=== PATIENT | female | born 1960 | race Caucasian/White ===

== ENCOUNTER 2017-03-28 08:06 | Outpatient (CLI) | payer OTHER ==
[2017-03-28] MEDS ORDERED: ADENOSINE 60 MG/20 ML VIAL ONE (17:14)
--- NOTE | 2017-03-29 17:00 | NM ---
MYOCARDIAL PERFUSION SCAN: HISTORY: Chest pain. TECHNIQUE: The patient was given 27 mCi of technetium sestamibi for rest imaging and 33 mCi for stress imaging. Two day protocol was followed. Patient was stressed according to Adenosine protocol. FINDINGS: There is a fixed defect in the anterior apical region on both stress and rest images. Some of this ma y be related to breast attenuation. No evidence of reversible ischemia identified. On wall motion evaluation, there is mild dyskinesis. Ejection fraction recorded at 50%. IMPRESSION: 1. Fixed defect in the anterior apical region. No evidence of reversible ischemia. 2. Mild wall motion dyskinesis with ejection fraction recorded at 50%. POS: [facility]
== END 2017-03-28 08:07 | disposition home or self-care (01) ==
LOC: NM 08:06
PROVIDERS: ATTEND Internal Medicine
DX: R07.9 Chest pain, unspecified (principal); R94.39 Abnormal result of other cardiovascular function study
CPT/HCPCS: 78452; 93017; A9500; J0153

== ENCOUNTER 2017-04-11 13:48 | Outpatient (CLI) | payer OTHER | END 2017-04-11 13:49 | disposition home or self-care (01) | LOC: ULT 13:48 | PROVIDERS: ATTEND Internal Medicine | DX: I45.10 Unspecified right bundle-branch block (principal) | CPT/HCPCS: 93306 ==

== ENCOUNTER 2017-10-09 06:28 | Outpatient (CLI) | payer OTHER ==
--- NOTE | 2017-10-09 07:55 | ULT ---
ABDOMINAL ULTRASOUND: INDICATION: Abdominal pain. FINDINGS: Images of the gallbladder reveal echogenic foci. These do not exhibit posterior shadowing. Consider ations include dense sludge balls or nonshadowing stones. Gallbladder wall thickness is normal. The common duct is normal caliber measured at 5 mm. The aorta and IVC appear unremarkable. The liver appears unremarkable. The spleen is surgically absent. Pancreas is mostly obscured. Both kidneys are imaged and each measures approximately 10 cm length. No evidence of hydronephrosis. There is a hypoechoic lesion in the inferior pole left kidney measures up to 1.5 cm. IMPRESSION: 1. Echogenic foci within the gallbladder consistent with sludge balls or nonshadowing stones. 2. An echogenic lesion in the inferior pole of the left kidney measuring 1.5 cm. This may represent an angiomyolipoma but cannot be adequately characterized by ultrasound. Recommend CT abdomen with a nd without contrast to further evaluate this renal lesion. 3. The spleen is surgically absent. POS: [facility]
== END 2017-10-09 06:29 | disposition home or self-care (01) ==
LOC: ULT 06:28
PROVIDERS: ATTEND Internal Medicine
DX: R10.9 Unspecified abdominal pain (principal); K82.9 Disease of gallbladder, unspecified; N28.89 Other specified disorders of kidney and ureter; Z90.81 Acquired absence of spleen
CPT/HCPCS: 76700

== ENCOUNTER 2017-10-15 12:04 | Outpatient (CLI) | payer OTHER ==
[~2017-10-15 12:04] MED LIST: Iopamidol 370 76% 100 ML VIAL ONE; Iopamidol 370 76% 50 ML VIAL FS ONE
--- NOTE | 2017-10-15 14:26 | CT ---
CT ABDOMEN WITH AND WITHOUT CONTRAST: Technique: Multiple axial tomograms were obtained through the abdomen pre and post IV contrast. Post contrast images were obtained in a portal venous and delayed venous phase following urographic protoc ol. Indications: Follow up left kidney lesion seen on recent ultrasound. Abdominal ultrasound of 10-09-17 described a hyperechoic lesion in the inferior left kidney. FINDINGS: Lung bases clear. There is a low density lesion seen in the upper right lobe of the liver on the noncontrast imaging me asuring approximately 3.0 cm. On the post contrast images, this lesion shows peripheral nodular enhan cement. The enhancing characteristics would suggest hemangioma. Correlation is made to the prior ultrasound and this area of the liver was not adequately visualized on the ultrasound due to shadowing from overlying bowel gas and ribs. This lesion was not seen on the ultrasound. There is a low density lesion in the upper right lobe of the liver measuring 3 cm on the noncontrast study. A faint low density lesion was seen in the medial left lobe and in the mid right lobe. On post contrast images, these lesions are better delineated. The upper right lobe lesion measures 3 cm, the medial left lobe lesion measures 2.1 cm, and the mid right lobe lesion measures 1.6 cm. All of these lesions show peripheral nodular enhancement on the post contrast images which would suggest hemangio ma. No of these lesions were seen on the recent abdominal ultrasound exam. The liver is otherwise unremarkable. The spleen is surgically absent. There is evidence of several sm all splenules in the left upper quadrant. The pancreas is unremarkable. Adrenal glands appear normal. Evaluation of the kidneys revealed two low density lesions in the inferior pole of the left kidney. T hese are faintly seen on the noncontrast study. They are better delineated on the post contrast exam. The more lateral lesion measures 1.0 cm and the more posterior lesion measures 1.2 cm. Neither of th rush lesions show fat density and, therefore, neither of these represents an angiomyolipoma as suspect ed on ultrasound. The lesion seen on ultrasound was hyperechoic which does not correspond with a cyst ic lesion. The more lateral lesion does show enhancement in the post contrast images also exhibits ir regular borders on the post contrast delayed images. This more lateral complex lesion probably corres ponds to the echogenic lesion seen on ultrasound. The more posterior lesion may represent a cyst, how ever, this was not identified on the recent ultrasound study. Right kidney is unremarkable. IMPRESSION: 1. There are two lesions in the lower pole left kidney identified by CT. The more lateral lesion appe ars more complex with evidence of irregular margins and internal enhancement. The more posterior lesi on is well circumscribed and may represent a cyst although this was not identified on recent ultrasou nd exam. Recommend urology consultation and recommend follow up of the complex lesion in the lateral left kidney. Suggest repeat CT with and without contrast in 4-6 months to assess stability of this le carlton. 2. There are three liver lesions seen on CT, none of which were identified on recent ultrasound. All of these lesions show enhancing characteristics suggesting hemangiomas. These lesions can also be fol lowed up on CT with the renal lesion. POS: [facility]
== END 2017-10-15 12:05 | disposition home or self-care (01) ==
LOC: CT 12:04
PROVIDERS: ATTEND Internal Medicine
DX: N28.89 Other specified disorders of kidney and ureter (principal)
CPT/HCPCS: 74170

== ENCOUNTER 2017-10-21 15:23 | Outpatient (CLI) | payer OTHER | END 2017-10-21 15:24 | disposition home or self-care (01) | LOC: BICMAMMO 15:23 | PROVIDERS: ATTEND Internal Medicine | DX: Z12.31 Encounter for screening mammogram for malignant neoplasm of breast (principal); Z80.3 Family history of malignant neoplasm of breast | CPT/HCPCS: 77063; 77067 ==

== ENCOUNTER 2018-01-29 12:12 | Outpatient (CLI) | payer OTHER ==
--- NOTE | 2018-01-29 14:15 | CT ---
CT ABDOMEN WITH AND WITHOUT CONTRAST: Date: 01/29/18 INDICATION: History of left renal mass. COMPARISON: Prior exam dated 10/15/17. FINDINGS: Small hypodensities involving the mid to lower pole of left kidney stable. One is seen on image 42 of series 3 in the left mid kidney measuring 1.0 cm. Lesion does mildly enhance and has on the precontr ast units areas of suspected fat on image 38 of series 2 suspicious for a tiny renal angiomyolipoma. The additional hypodensity involving the lower pole of the left kidney measures approximately 12 mm a nd demonstrates some mild internal enhancement suspicious for the presence of some mild internal sept ations. Small splenules are suspected within the left upper quadrant of the abdomen. The lesions with in the liver are consistent with hemangioma and are stable. The pancreas and adrenal glands are normal appearing. No free fluid or enlarged lymph nodes are evide nt. No definite acute osseous abnormality is evident. IMPRESSION: 1. Stable small hypodensities involving the mid to lower pole of the left kidney. The lesion within the left mid kidney has suspicion of a very small eccentric region of macroscopic fat and is suspicio us for a tiny renal angiomyolipoma. The hypodensity involving the inferior pole of the left kidney is suspicious for mildly complex cyst with possibly some enhancing internal septations. A follow-up exa mination in 1 year is recommended to document stability. 2. Hypodensities involving the liver demonstrate enhancement characteristics most consistent with he mangiomas. There are two lesions within the right hepatic lobe and one lesion within the medial left hepatic lobe. 3. Multiple small splenules within the left upper quadrant of the abdomen. POS: [facility]
[2018-01-29] MEDS ORDERED: Iopamidol 370 76% 100 ML VIAL ONE (16:08)
== END 2018-01-29 12:13 | disposition home or self-care (01) ==
LOC: CT 12:12
PROVIDERS: ATTEND Urology
DX: N28.89 Other specified disorders of kidney and ureter (principal); K76.9 Liver disease, unspecified
CPT/HCPCS: 74170

== ENCOUNTER 2018-10-29 15:51 | Outpatient (CLI) | payer OTHER ==
--- NOTE | 2018-10-29 16:14 | MMO ---
Bilateral MAMMO Bilat Screen [facility]. CLINICAL HISTORY: Patient is 58 years old and is seen for screening. The patient has no personal history of cancer. The patient has a history of right Excisional Biopsy in January, - BENIGN. VIEWS: The views performed were: bilateral craniocaudal with tomosynthesis and bilateral mediolateral oblique with tomosynthesis. FILMS COMPARED: The present examination has been compared to prior imaging studies performed at [facility] on 05/20/2007, 05/24/2008, 05/25/2009 and 10/21/2017. MAMMOGRAM FINDINGS: There are scattered fibroglandular densities. Finding 1: There are stable benign appearing calcifications seen in the left breast. Finding 2: There is a biopsy clip seen in the right breast. There are no suspicious masses, suspicious calcifications, or new areas of architectural distortion. IMPRESSION: THERE IS NO MAMMOGRAPHIC EVIDENCE OF MALIGNANCY. A ROUTINE FOLLOW-UP MAMMOGRAM IN 1 YEAR IS RECOMMENDED. THE RESULTS OF THIS EXAM WERE SENT TO THE PATIENT. ACR BI-RADS Category 2 - Benign finding MAMMOGRAPHY NOTE: 1. A negative mammogram report should not delay a biopsy if a dominant of clinically suspicious mass is present. 2. Approximately 10% to 15% of breast cancers are not detected by mammography. 3. Adenosis and dense breasts may obscure an underlying neoplasm. Reported by: NEELA ALBERTS MD Electonically Signed: [id number]
== END 2018-10-29 15:52 | disposition home or self-care (01) ==
LOC: BICMAMMO 15:51
PROVIDERS: ATTEND Internal Medicine
DX: Z12.31 Encounter for screening mammogram for malignant neoplasm of breast (principal); Z91.89 Other specified personal risk factors, not elsewhere classified
CPT/HCPCS: 77063; 77067

== ENCOUNTER 2018-11-12 13:46 | Outpatient (CLI) | payer OTHER ==
[~2018-11-12 13:46] MED LIST changes: -Iopamidol 370 76% 50 ML VIAL FS ONE
--- NOTE | 2018-11-12 15:33 | CT ---
CT ABDOMEN WITH AND WITHOUT IV CONTRAST: 11/12/18 HISTORY: Follow-up left renal neoplasm. COMPARISON: Studies on 01/29/18 and 10/15/17. FINDINGS: There is a small 5 mm incompletely imaged pulmonary nodule right lung base which is adjacent to the r egion or may be related to intrapleural lymph node. Lung bases otherwise clear except for minimal ate lectasis right lung base. There are two stable lesions within the liver which demonstrate characteristics most compatible with hemangiomas. These lesions are unchanged in size or appearance compared to prior studies. Subcentimeter too small to characterize hypodense lesions are again seen in each kidney. There is a h ypodense lesion with suggestion of attenuation coefficient compatible with fat on precontrast imaging suggesting a small angiomyolipoma in the inferior pole of the left kidney suggesting a angiomyolipom a. There is a stable low density lesion within the posterior aspect mid portion left kidney which faiza sures 1.3 cm and is overall stable in size compared to the prior exams. Again, there is question of a small enhancing thin septation within this lesion and this probably represents a Bosniak type II costa al cystic lesion. There are hypodense areas within the region of the renal sinus fat most compatible with small parapelvic left renal cysts as well. Multiple lobular areas seen in the left upper quadrant likely related to multiple splenules. The pancreas and bilateral adrenal glands demonstrate a normal CT appearance. There is a small enhancing nodule seen within the central mesentery measuring 1.2 cm with a smaller n odule seen in the anterior aspect upper abdomen measuring less than 1 cm. These nodules were present on prior studies, although the nodule within the central mesentery measures slightly larger in size m easuring 1.2 cm on today's exam where it previously measured 1 cm. These findings could represent sma ll splenules given the appearance of the spleen in the left upper quadrant or possibly related to mil dly prominent lymph nodes. No free fluid or fluid collection is seen in the abdomen. Degenerative changes are again seen in the spine. IMPRESSION: 1. Stable subcentimeter too small to characterize hypodense lesions in each kidney with findings suggestive of Bosniak type II renal cystic lesion posterior aspect mid portion left kidney. 2. Stable small angiomyolipoma left kidney. 3. Small nodules within the anterior mesenteric fat which could represent small lymph nodes or p ossibly splenules. The nodule in the central mesentery is slightly larger in size. 4. Lesions within the liver again demonstrating characteristics most compatible with hemangiomas . 5. Incomplete imaging of a 5 mm pleural based pulmonary nodule right lung base. POS: [facility]
== END 2018-11-12 13:47 | disposition home or self-care (01) ==
LOC: CT 13:46
PROVIDERS: ATTEND Urology
DX: D49.512 Neoplasm of unspecified behavior of left kidney (principal); D17.71 Benign lipomatous neoplasm of kidney; K76.89 Other specified diseases of liver; R91.1 Solitary pulmonary nodule; K66.8 Other specified disorders of peritoneum; R93.421 Abnormal radiologic findings on diagnostic imaging of right kidney; R93.422 Abnormal radiologic findings on diagnostic imaging of left kidney
CPT/HCPCS: 74170; Q9967

== ENCOUNTER 2019-03-30 15:03 | Outpatient (CLI) | payer OTHER ==
--- NOTE | 2019-03-30 17:41 | CT ---
CT CHEST WITH IV CONTRAST CT ABDOMEN WITH AND WITHOUT IV CONTRAST: Date: 03/30/19 HISTORY: Lung nodule, kidney mass follow-up. COMPARISON: CT abdomen of 11/12/18. FINDINGS: No evidence of mediastinal, hilar, or axillary mass or lymphadenopathy seen. No pleural or pericardia l effusions identified. There is a 5 mm nodule in the peripheral aspect of the right lower lobe, whic h is stable since the last study. No other lung nodules are seen. Liver hemangiomas are stable. The spleen, pancreas, and adrenal glands are normal. No calculi seen in the kidneys or visualized portions of the ureters. No hydroureteronephrosis seen o n either side. There is a 9 mm stable lesion in the right renal cortex which demonstrates postcontrast enhancement. There is a 13 mm cyst with internal septation in the posterior cortex of the inferior left kidney, wh ich is stable. The 1.0 cm fat-containing low density lesion in the inferolateral cortex of the left l ower kidney is stable, consistent with angiomyolipoma. No free air, free fluid, or lymphadenopathy seen in the abdomen. No calcified gallstones are seen. A normal appearing appendix is seen. There are degenerative changes in the thoracolumbar spine. The small enhancing nodule in the central mesentery measuring 1.2 cm and a smaller nodule in the ante rior aspect of the upper abdomen measuring less than 1.0 cm are stable. IMPRESSION: Stable findings in the chest and abdomen since 11/12/18. POS: [facility]
== END 2019-03-30 15:04 | disposition home or self-care (01) ==
LOC: RAD 15:03
PROVIDERS: ATTEND Urology
DX: R91.1 Solitary pulmonary nodule (principal); D49.512 Neoplasm of unspecified behavior of left kidney
CPT/HCPCS: 71260; 74170; 82565; Q9967

== ENCOUNTER 2019-11-03 15:20 | Outpatient (CLI) | payer OTHER ==
--- NOTE | 2019-11-03 15:55 | MMO ---
Bilateral MAMMO Bilat Screen [facility]. CLINICAL HISTORY: Patient is 59 years old and is seen for screening. The patient has the following family history of breast cancer: cousin female, at age 40. The patient has no personal history of cancer. The patient has a history of right Excisional Biopsy in January, - BENIGN. VIEWS: The views performed were: bilateral craniocaudal with tomosynthesis and bilateral mediolateral oblique with tomosynthesis. FILMS COMPARED: The present examination has been compared to prior imaging studies performed at [facility] on 05/24/2008, 05/25/2009, 10/21/2017 and 10/29/2018. This study has been interpreted with the assistance of computer-aided detection. MAMMOGRAM FINDINGS: There are scattered fibroglandular densities. There are biopsy clips seen in both breasts. There are no suspicious masses, suspicious calcifications, or new areas of architectural distortion. IMPRESSION: THERE IS NO MAMMOGRAPHIC EVIDENCE OF MALIGNANCY. A ROUTINE FOLLOW-UP MAMMOGRAM IN 1 YEAR IS RECOMMENDED. THE RESULTS OF THIS EXAM WERE SENT TO THE PATIENT. ACR BI-RADS Category 2 - Benign finding MAMMOGRAPHY NOTE: 1. A negative mammogram report should not delay a biopsy if a dominant of clinically suspicious mass is present. 2. Approximately 10% to 15% of breast cancers are not detected by mammography. 3. Adenosis and dense breasts may obscure an underlying neoplasm. Reported by: DUDLEY FREGOSO MD Electonically Signed: [id number]
== END 2019-11-03 15:21 | disposition home or self-care (01) ==
LOC: BICMAMMO 15:20
PROVIDERS: ATTEND Internal Medicine
DX: Z12.31 Encounter for screening mammogram for malignant neoplasm of breast (principal); Z91.89 Other specified personal risk factors, not elsewhere classified; Z80.3 Family history of malignant neoplasm of breast
CPT/HCPCS: 77063; 77067

== ENCOUNTER 2020-03-17 13:10 | Outpatient (CLI) | payer OTHER ==
[2020-03-17] MEDS ORDERED: Iopamidol 370 76% 100 ML VIAL ONE (13:44)
--- NOTE | 2020-03-17 14:12 | CT ---
EXAM: CT Abdomen W WO Con PROVIDED CLINICAL HISTORY: Follow-up renal mass. COMPARISON: 03/30/2019 FINDINGS: Visualized lung bases are clear. Stable hemangiomas are again seen in the liver. A few tiny subcentimeter too small to characterize hy podense lesions are also seen in the anterior aspect of the left hepatic lobe. Multiple splenules are again seen in the left upper quadrant. There is a nodular density seen within the central aspect of the abdomen unchanged from prior studies. This likely represents a small splenule. The pancreas and bilateral adrenal glands demonstrate a normal CT appearance. A subcentimeter too small to characterize hypodense lesion is seen at the medial aspect of the superi or pole right kidney. There was a small hypodense subcentimeter lesion in the more anterior aspect junction midportion inferior pole right kidney, this is much smaller in size on today's exam. Left re nal parapelvic cysts are again seen. Stable hypodense lesions are again seen in the midportion and inferior pole left kidney measuring 15 mm and 12 mm respectively. The smaller lesion in the inferior pole left kidney demonstrates an attenuation coefficient suggestive of an angiomyolipoma. Lesion in midportion left kidney is larger in size compared to study in 2018 which measured 13 mm in greatest d imension on that exam but is overall similar in size to recent study on 03/30/2019. No new enhancing renal lesion is visualized. No renal calculi are visualized. Abdominal aorta is normal in caliber. Mild degenerative changes again seen in the spine. IMPRESSION: 1. No acute findings in the abdomen. 2. Left renal angiomyolipoma with stable subcentimeter too small to characterize hypodense lesions in each kidney as well as a stable hypodense cystic appearing lesion in the midportion left kidney. Although this lesion inferior pole left kidney is stable compared to recent study, this lesion is sli ghtly larger in size compared to study on 10/15/2017.
--- NOTE | 2020-03-17 14:23 | CT ---
CT OF THE CHEST WITH IV CONTRAST INDICATION: Follow-up lung nodule COMPARISON: CT of the chest and abdomen dated March 30, 2019 FINDINGS: CHEST: Lungs: Small 5 mm pulmonary nodule in the right lower lobe is stable. No new pulmonary nodule is iden tified. Small suspected calcified granuloma in the left upper lobe is stable. Pleural space: No effusion. Mediastinum: No pathologically enlarged lymph nodes are evident. Upper abdomen:There are small splenules within the left upper quadrant and adrenal glands are normal appearing Osseous structures: There is scattered degenerative and osteoarthritic change present. No acute frac ture or subluxation demonstrated. Soft tissues:Normal. IMPRESSION: 1. Stable right lower lobe pulmonary nodule. No new pulmonary nodules identified.
== END 2020-03-17 13:11 | disposition home or self-care (01) ==
LOC: CT 13:10
PROVIDERS: ATTEND Urology
DX: D49.512 Neoplasm of unspecified behavior of left kidney (principal); R91.1 Solitary pulmonary nodule; D17.71 Benign lipomatous neoplasm of kidney; N28.9 Disorder of kidney and ureter, unspecified
CPT/HCPCS: 71260; 74170; 82565; Q9967

== ENCOUNTER 2020-11-03 12:24 | Outpatient (CLI) | payer OTHER | END 2020-11-03 12:25 | disposition home or self-care (01) | LOC: BICMAMMO 12:24 | PROVIDERS: ATTEND Internal Medicine | DX: Z12.31 Encounter for screening mammogram for malignant neoplasm of breast (principal); Z80.3 Family history of malignant neoplasm of breast; Z91.89 Other specified personal risk factors, not elsewhere classified | CPT/HCPCS: 77063; 77067 ==

== ENCOUNTER 2021-03-30 10:15 | Outpatient (CLI) | payer OTHER | END 2021-03-30 10:16 | disposition home or self-care (01) | LOC: CT 10:15 | PROVIDERS: ATTEND Urology | DX: D17.71 Benign lipomatous neoplasm of kidney (principal); R91.1 Solitary pulmonary nodule; N28.9 Disorder of kidney and ureter, unspecified; N28.1 Cyst of kidney, acquired; D18.03 Hemangioma of intra-abdominal structures | CPT/HCPCS: 71260; 74170; 82565 ==

== ENCOUNTER 2021-11-14 13:34 | Outpatient (CLI) | payer BC | END 2021-11-14 13:35 | disposition home or self-care (01) | LOC: BICMAMMO 13:34 | PROVIDERS: ATTEND Internal Medicine | DX: Z12.31 Encounter for screening mammogram for malignant neoplasm of breast (principal); Z80.3 Family history of malignant neoplasm of breast; Z91.89 Other specified personal risk factors, not elsewhere classified | CPT/HCPCS: 77063; 77067 ==

== ENCOUNTER 2022-04-11 07:57 | Outpatient (CLI) | payer BC ==
[2022-04-11] MEDS ORDERED: Iopamidol 370 76% 100 ML VIAL ONE (12:47)
== END 2022-04-11 07:58 | disposition home or self-care (01) ==
LOC: CT 07:57
PROVIDERS: ATTEND Urology
DX: N28.89 Other specified disorders of kidney and ureter (principal); R91.1 Solitary pulmonary nodule; K31.4 Gastric diverticulum
CPT/HCPCS: 71260; 74170; 82565; Q9967

== ENCOUNTER 2023-01-29 12:32 | Outpatient (CLI) | payer BC | END 2023-01-29 12:33 | disposition home or self-care (01) | LOC: BICMAMMO 12:32 | PROVIDERS: ATTEND Family Medicine | DX: Z12.31 Encounter for screening mammogram for malignant neoplasm of breast (principal); Z80.3 Family history of malignant neoplasm of breast; Z91.89 Other specified personal risk factors, not elsewhere classified | CPT/HCPCS: 77063; 77067 ==

== ENCOUNTER 2023-09-05 12:10 | Outpatient (CLI) | payer BC | END 2023-09-05 12:11 | disposition home or self-care (01) | LOC: CT 12:10 | PROVIDERS: ATTEND Urology | DX: N28.89 Other specified disorders of kidney and ureter (principal); D18.03 Hemangioma of intra-abdominal structures; D17.5 Benign lipomatous neoplasm of intra-abdominal organs; N28.1 Cyst of kidney, acquired | CPT/HCPCS: 74178; 82565 ==

== ENCOUNTER 2024-02-03 14:31 | Outpatient (CLI) | payer BC | END 2024-02-03 14:32 | disposition home or self-care (01) | LOC: BICMAMMO 14:31 | PROVIDERS: ATTEND Physician Assistant | DX: Z12.31 Encounter for screening mammogram for malignant neoplasm of breast (principal); Z80.3 Family history of malignant neoplasm of breast; Z91.89 Other specified personal risk factors, not elsewhere classified | CPT/HCPCS: 77063; 77067 ==

== ENCOUNTER 2025-03-02 10:30 | Outpatient (CLI) | payer BC | END 2025-03-02 10:31 | disposition home or self-care (01) | LOC: BICMAMMO 10:30 | PROVIDERS: ATTEND Family Medicine | DX: Z12.31 Encounter for screening mammogram for malignant neoplasm of breast (principal); Z80.3 Family history of malignant neoplasm of breast; Z85.828 Personal history of other malignant neoplasm of skin; Z91.89 Other specified personal risk factors, not elsewhere classified | CPT/HCPCS: 77063; 77067 ==